=== PATIENT | female | born 1975 | race Caucasian/White ===

== ENCOUNTER 2022-03-22 08:09 | Outpatient (REF) | payer MEDICAID, SELFPAY ==
--- NOTE | ~2022-03-22 | CT_ITS ---
CT ANGIOGRAM BRAIN, HEAD CLINICAL INFORMATION: Cerebral aneurysm COMPARISON: None available at time of dictation. TECHNIQUE: Test bolus sequences followed by intravenous administration 75 mL of Omnipaque 350 intravenous contrast. Helical imaging was performed in the axial plane from the skull base to the vertex. Delayed postcontrast imaging of the head was also performed. The data was processed at the echocardiography radiology technologist workstation for generation of MIP sequences. Three-dimensional volume rendered reformatted images were also generated at an offline 3-D workstation. The degree of stenosis determined by NASCET criteria. This CT examination was performed using dose optimization techniques as appropriate, variously including the following: *Automated exposure control *Adjustment of mA and/or kV according to patient size (this includes techniques or standardized protocols for targeted exams where dose is matched to indication/reason for exam; i.e. 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 There is possible very thin versus dehiscent bone along the posterior sphenoid sinus villavicencio bilaterally opposing the distal cavernous ICA segments bilaterally as well as the aforementioned suspected aneurysm. There are no definite additional aneurysms accounting for artifact. There is no pathologic enhancement intracranially. There is no intracranial hemorrhage, hydrocephalus, extra-axial surface collection, midline shift, or other herniation pattern. Berrios to white matter differentiation is diffusely maintained without evidence of an evolved acute territorial infarct. The basilar cisterns are preserved. No significant soft tissue abnormality. No acute osseous abnormality. The paranasal sinuses and the mastoid air cells are well aerated. 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 There is possible very thin versus dehiscent bone along the posterior sphenoid sinus villavicencio bilaterally opposing the distal cavernous ICA segments bilaterally as well as the aforementioned suspected aneurysm. No prior studies are available for comparison. If a prior study becomes available, an addendum will be made.
[2022-03-22] MEDS: iohexoL 350 MG/ML 100 ML INFUS..BTL IV (10:26)
== END 2022-03-22 08:10 | disposition home or self-care (01) ==
LOC: HO.CT 08:09
PROVIDERS: PCP Nurse Practitioner Family; Visit Provider Psychiatry & Neurology Neurology
DX: I67.1 Cerebral aneurysm, nonruptured (principal)
CPT/HCPCS: 70496; Q9967